=== PATIENT | female | born 1930 | race Caucasian/White ===

== ENCOUNTER 2019-07-29 10:12 | Outpatient (CLI) | payer OTHER ==
[~2019-07-29 10:12] MED LIST: LEVO750T21 PO
== END 2019-07-29 23:59 | disposition home or self-care (01) ==
LOC: RAD 10:12
PROVIDERS: ATTEND Nurse Practitioner Family
DX: M19.041 Primary osteoarthritis, right hand (principal); M85.841 Other specified disorders of bone density and structure, right hand; E11.9 Type 2 diabetes mellitus without complications
CPT/HCPCS: 73130